=== PATIENT | female | born 1995 | race Caucasian/White ===

== ENCOUNTER 2023-06-30 20:25 | Emergency (ER) | payer OTHER, SELFPAY ==
[2023-06-30 20:51] VITALS: BP 104/65; PULSE 77; RESP 16; TEMP 36.7; O2SAT 100; BMI 30.2
== END 2023-06-30 23:00 | disposition left against medical advice (07) ==
PROVIDERS: Emergency Provider Emergency Medicine
DX: Z53.21 Procedure and treatment not carried out due to patient leaving prior to being seen by health care provider (principal)